=== PATIENT | male | born 1970 | race Caucasian/White ===

== ENCOUNTER 2022-04-02 14:30 | Emergency (ER) | payer MEDICAID | END 2022-04-02 15:35 | disposition home or self-care (01) | LOC: CC.ED 14:30 | DX: S63.256A Unspecified dislocation of right little finger, initial encounter (principal); I10 Essential (primary) hypertension; X50.1XXA Overexertion from prolonged static or awkward postures, initial encounter | CPT/HCPCS: 26770; 73140-F9; 99283-25 ==